=== PATIENT | female | born 1940 | race Two or more races ===

== ENCOUNTER 2017-05-12 15:22 | Emergency (ER) | payer MEDICARE ==
[~2017-05-12] VITALS: Ht 149.9 cm; Wt 110.6 kg
[2017-05-12] MEDS ORDERED: ATEN25TA (15:38)
[2017-05-12] MEDS ORDERED: EZET10TA (15:38)
[2017-05-12] MEDS ORDERED: SIMV40TA2 (15:38)
[2017-05-12] MEDS ORDERED: FURO40TA2 (15:38)
[2017-05-12 17:07] VITALS: BP 103/59
[2017-09-12] MEDS ORDERED: GLUC1CAP10 PO (11:44)
[2017-09-12] MEDS ORDERED: EUCECRE3 TOP (11:45)
[2017-09-12] MEDS ORDERED: SINUPOW7 (11:45)
== END 2017-05-12 17:17 | disposition home or self-care (01) ==
LOC: M ED 15:22
DX: L97.229 Non-pressure chronic ulcer of left calf with unspecified severity (principal); I73.9 Peripheral vascular disease, unspecified; I10 Essential (primary) hypertension; Z88.2 Allergy status to sulfonamides; Z88.1 Allergy status to other antibiotic agents; Z79.899 Other long term (current) drug therapy

== ENCOUNTER → 2017-07-13 | Outpatient (CLI) | payer MEDICARE ==
[~2017-07-13] MED LIST: ATEN25TA; EUCECRE3 TOP; EZET10TA; FURO40TA2; GLUC1CAP10 PO; SIMV40TA2; SINUPOW7
--- NOTE | 2017-07-13 13:32 | REP ---
Clinical: Idiopathic venous hypertension. Technique: Hill scale and color Doppler evaluation using linear high frequency transducer with reflux evaluation. Findings: Ultrasound examination of the left lower extremity deep venous structures from the common femoral vein to the popliteal vein demonstrates normal compressibility flow and wave patterns in response to respiration and augmentation. There is no evidence for deep venous thrombosis. Reflux portion of examination demonstrates reflux through the greater saphenous vein at the saphenofemoral junction measuring 11 mm diameter and 5.5 seconds duration; at the mid thigh measuring 8 mm diameter and 7.8 seconds duration; at the knee measuring 6 mm diameter and 4.8 seconds duration. Associated moderate to large collaterals from the greater saphenous vein extend caudally to the knee and demonstrate reflux. Impression: 1. No evidence for deep venous thrombosis. 2. Marked reflux throughout the greater saphenous vein likely amendable to EVLT. Signed by Gualberto Menezes MD 07/13/2017 01:24 P
== END ==
LOC: M RAD 12:22
PROVIDERS: ATTEND Surgery
DX: I87.312 Chronic venous hypertension (idiopathic) with ulcer of left lower extremity (principal)

== ENCOUNTER → 2017-09-16 | Outpatient (CLI) | payer MEDICARE ==
[2017-09-16 11:14] LABS: MEAN CORPUSCULAR HEMOGLOBIN 31.1 pg (27.0-33.0); MEAN CORPUSCULAR HGB CONC 33.2 g/dl (32.0-36.5); MEAN CORPUSCULAR VOLUME 93.8 fl (80.0-96.0); PLATELET COUNT, AUTOMATED 178 10^3/uL (150-450); RED CELL DISTRIBUTION WIDTH 12.8 % (11.5-14.5); WHITE BLOOD COUNT 7.4 10^3/uL (4.0-10.0)
[2017-09-16 11:39] LABS: ANION GAP 7 MEQ/L (8-16); BLOOD UREA NITROGEN 20 MG/DL (7-18); CALCIUM LEVEL 8.6 MG/DL (8.8-10.2); CARBON DIOXIDE LEVEL 32 MEQ/L (21-32); CHLORIDE LEVEL 103 MEQ/L (98-107); CREATININE FOR GFR 0.69 MG/DL (0.55-1.02); GLOMERULAR FILTRATION RATE > 60.0 (>39); GLUCOSE, FASTING 121 MG/DL (83-110); POTASSIUM SERUM 4.3 MEQ/L (3.5-5.1); SODIUM LEVEL 142 MEQ/L (136-145)
--- NOTE | 2017-09-16 18:28 | ECGEPIP ---
Stationary ECG Study [facility] Test Date: 2017-09-16 Pat Name: PRASHANT LAURENT Department: Room: - Gender: F Packaging Engineer: SARAH : 1940 Requested By: Timoteo Morrison Order Number: [id number] Reading MD: Ciera Herrera Measurements Intervals [place] Rate: 64 P: 56 MO: 219 QRS: -38 QRSD: 118 T: -6 QT: 441 QTc: 457 Interpretive Statements SINUS RHYTHM WITH FIRST DEGREE AV BLOCK MARKED LEFT AXIS DEVIATION INCOMPLETE RIGHT BUNDLE BRANCH BLOCK VOLTAGE CRITERIA FOR LVH POSSIBLE SEPTAL MYOCARDIAL INFARCTION, INDETERMINED AGE NO PRIOR Electronically Signed On 09-16-2017 18:27:43 EST by Ciera Herrera
== END ==
LOC: M LAB 10:42
PROVIDERS: ATTEND Anesthesiology
DX: Z01.818 Encounter for other preprocedural examination (principal); I10 Essential (primary) hypertension; I45.19 Other right bundle-branch block

== ENCOUNTER 2017-09-22 07:02 | Day surgery (SDC) | payer MEDICARE ==
[~2017-09-22] VITALS: Ht 149.9 cm; Wt 109.4 kg
[2017-09-22] MEDS ORDERED: LR 1,000 ML IV ONE (07:30)
[2017-09-22] MEDS ORDERED: LIDOCAINE 1% SDV INJ 30 ML VIAL As Ordered ONE (08:51)
[2017-09-22] MEDS ORDERED: LIDOCAINE W/EPINEPHRINE 1% 20ML VIAL As Ordered ONE (08:51)
[2017-09-22] MEDS ORDERED: PROPOFOL 500 MG/50 ML VIAL As Ordered ONE (10:09)
[2017-09-22] MEDS ORDERED: LIDOCAINE 2% INJ 100 MG/5 ML SDV (FOR ANES.) As Ordered ONE (10:09)
[2017-09-22] MEDS ORDERED: fentaNYL 100 MCG/2 ML INJECTION (J3010) As Ordered ONE (10:09)
[2017-09-22] MEDS ORDERED: MIDAZOLAM INJ 2 MG/2 ML VIAL (J2250) As Ordered ONE (10:09)
[2017-09-22] MEDS ORDERED: ePHEDrine SULFATE 25 MG/5 ML(5MG/ML) SYRINGE As Ordered ONE (10:14)
[2017-09-22] MEDS ORDERED: PHENYLephrine HCL 500 MCG/5 ML (100MCG/ML) SYRINGE (J2370) As Ordered ONE (10:14)
[2017-09-22] MEDS ORDERED: PROPOFOL 200 MG/20 ML VIAL As Ordered ONE (10:34)
[2017-09-22] MEDS ORDERED: NORCO, ANEXSIA 5/325MG TABLET (HYDROcodone/ACETAMINOPHEN) PO PRN (11:30)
[2017-09-22] MEDS ORDERED: ONDANSETRON 4MG/2ML VIAL (J2405) IV PRN (11:30)
[2017-09-22] MEDS ORDERED: LR 1,000 ML IV SCH (11:30)
[2017-09-22 11:36] VITALS: BP 183/85
--- NOTE | 2017-10-27 14:05 | RO ---
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 Non-healing left venostasis ulcer. POSTPROCEDURE DIAGNOSIS: Left greater saphenous vein venous valvular insufficiency. Non-healing left venostasis ulcer. PROCEDURE: Left greater saphenous vein radiofrequency ablation. SURGEON: Dr. Dylan Roper. HYDROLOGY TEACHER: None. ANESTHESIA: Local monitored anesthesia care (MAC). ESTIMATED BLOOD LOSS: 50 mL. IV FLUIDS: 650 mL. SPECIMENS: None. HEPARIN: None. COMPLICATIONS: None. DRAINS: None. INDICATION: The patient is a 77-year-old female with a nonhealing venostasis ulcer in her left lower extremity who underwent an ultrasound showing she had venous valvular insufficiency in her greater saphenous vein. The patient will undergo a greater saphenous vein radiofrequency ablation for aide in healing and prevention of future venostasis ulcers. Risks, benefits and alternative treatment options were discussed with the patient. DESCRIPTION OF PROCEDURE: The patient was taken to the operating room, placed supine on the operating room table and then prepped and draped in the standard surgical fashion. Ultrasound was used to guide cannulation of the greater saphenous vein in the below knee region of the left lower extremity after which the micropuncture wire was enhanced through the micropuncture needle which was upsized to a sheath. A radiofrequency ablation catheter was then placed 2 cm distal to the saphenofemoral junction under ultrasound guidance. solution was then injected circumferentially around the greater saphenous vein from the saphenofemoral junction to the puncture site in the below knee region after which the radiofrequency ablation catheter was used to ablate the greater saphenous vein 2 cm distal to the saphenofemoral junction to the entry site in the below knee region. Catheters and wires were then removed and the dressings were applied. The patient tolerated the procedure well. All instrument, sponge and needle counts were correct at the end of the case. There were no complications. Dr. Roper was present for and directed the entire case. The patient was transferred to the recovery room and subsequently discharged in stable condition.
== END 2017-09-22 11:40 | disposition home or self-care (01) ==
LOC: M SDC 07:02
PROVIDERS: ATTEND Surgery Vascular Surgery
DX: I83.228 Varicose veins of left lower extremity with both ulcer of other part of lower extremity and inflammation (principal); L97.929 Non-pressure chronic ulcer of unspecified part of left lower leg with unspecified severity; I10 Essential (primary) hypertension; E78.00 Pure hypercholesterolemia, unspecified; R06.02 Shortness of breath; R29.898 Other symptoms and signs involving the musculoskeletal system; R06.83 Snoring; C50.911 Malignant neoplasm of unspecified site of right female breast; Z88.1 Allergy status to other antibiotic agents; Z88.2 Allergy status to sulfonamides; Z88.8 Allergy status to other drugs, medicaments and biological substances; Z79.899 Other long term (current) drug therapy; Z90.11 Acquired absence of right breast and nipple
CPT/HCPCS: 36475; J2250; J2370; J3010

== ENCOUNTER → 2017-10-10 | Outpatient (CLI) | payer MEDICARE ==
--- NOTE | 2017-10-10 13:12 | REP ---
LEFT LOWER EXTREMITY DOPPLER VENOUS ULTRASOUND: 10/10/2017. Comparison: 07/13/2017 venous reflux study. Clinical history: Status post ablation, evaluate for DVT. Findings: Standard duplex techniques were utilized. Color flow is maintained throughout the deep venous system from the groin to the popliteal fossa. There is respiratory variation and augmented flow at all levels. There are small lymph nodes in the inguinal region. There is no evidence of thrombus with full compressibility throughout the course of the deep venous system. There is respiratory variation and augmented flow at all levels. There is also flow maintained in the greater saphenous vein. Impression: 1. No ultrasound evidence of DVT in the left lower extremity. There remains some flow in the greater saphenous vein. The deep venous system is fully compressible. Nothing acute. Signed by Marcial Delgado MD 10/11/2017 07:21 P
== END ==
LOC: M RAD 11:09
PROVIDERS: ATTEND Surgery Vascular Surgery
DX: I87.2 Venous insufficiency (chronic) (peripheral) (principal)

== ENCOUNTER → 2022-12-13 | Outpatient (CLI) | payer MEDICARE ==
[~2022-12-13] MED LIST changes: -EZET10TA; +EZET10TA21; -SIMV40TA2; +SIMV40TA20
== END ==
LOC: M RAD 08:49
PROVIDERS: ATTEND Surgery
DX: I87.312 Chronic venous hypertension (idiopathic) with ulcer of left lower extremity (principal)

== ENCOUNTER → 2022-12-16 | Outpatient (REF) | payer MEDICARE | LOC: M SFHCWOUN 16:31 | PROVIDERS: ATTEND Physician Assistant | DX: L97.822 Non-pressure chronic ulcer of other part of left lower leg with fat layer exposed (principal); I87.312 Chronic venous hypertension (idiopathic) with ulcer of left lower extremity ==

== ENCOUNTER → 2022-12-20 | Outpatient (CLI) | payer MEDICARE | LOC: M RAD 12:05 | PROVIDERS: ATTEND Physician Assistant | DX: L97.822 Non-pressure chronic ulcer of other part of left lower leg with fat layer exposed (principal) ==

== ENCOUNTER → 2022-12-21 | Outpatient (POV) | payer MEDICARE ==
[~2022-12-21] VITALS: Ht 149.9 cm; Wt 99.5 kg
[2022-12-21 10:50] VITALS: BP 121/61
== END ==
LOC: M IRPOV 10:22
PROVIDERS: ATTEND Radiology Diagnostic Radiology
DX: I87.012 Postthrombotic syndrome with ulcer of left lower extremity (principal); L97.929 Non-pressure chronic ulcer of unspecified part of left lower leg with unspecified severity; Z79.82 Long term (current) use of aspirin; Z79.899 Other long term (current) drug therapy; Z85.3 Personal history of malignant neoplasm of breast; Z86.718 Personal history of other venous thrombosis and embolism; Z88.1 Allergy status to other antibiotic agents; Z88.2 Allergy status to sulfonamides; Z88.8 Allergy status to other drugs, medicaments and biological substances; Z90.11 Acquired absence of right breast and nipple; Z90.710 Acquired absence of both cervix and uterus; Z98.51 Tubal ligation status

== ENCOUNTER → 2023-01-06 | Outpatient (CLI) | payer MEDICARE | LOC: M LABSMTC 10:56 | PROVIDERS: ATTEND Anesthesiology | DX: Z01.812 Encounter for preprocedural laboratory examination (principal); Z20.822 Contact with and (suspected) exposure to COVID-19 ==

== ENCOUNTER → 2023-01-10 | Outpatient (CLI) | payer MEDICARE ==
[~2023-01-10] MED LIST changes: +ISOVUE-300 61% 100ML VIAL As Ordered ONE; +LIDOCAINE 1% MDV 20ML VIAL As Ordered ONE; +MIDAZOLAM INJ 2MG/2ML VIAL As Ordered ONE; +NS 1,000 ML IV SCH; +diphenhydrAMINE 50MG/ML VIAL As Ordered ONE; +fentaNYL 100 MCG/2 ML INJECTION As Ordered ONE
[2023-01-10 14:30] VITALS: BP 137/62
== END ==
LOC: M IRPRO 10:43
PROVIDERS: ATTEND Radiology Diagnostic Radiology
DX: I87.012 Postthrombotic syndrome with ulcer of left lower extremity (principal); L97.929 Non-pressure chronic ulcer of unspecified part of left lower leg with unspecified severity; Z79.899 Other long term (current) drug therapy; Z86.718 Personal history of other venous thrombosis and embolism; Z88.1 Allergy status to other antibiotic agents; Z88.2 Allergy status to sulfonamides; Z88.8 Allergy status to other drugs, medicaments and biological substances; Z95.828 Presence of other vascular implants and grafts
CPT/HCPCS: 36012; 99152; C1769; C1894; J2250; J3010; Q9967

== ENCOUNTER → 2023-01-25 | Outpatient (POV) | payer MEDICARE ==
[~2023-01-25] VITALS: Ht 149.9 cm; Wt 97.7 kg
[~2023-01-25] MED LIST changes: -ISOVUE-300 61% 100ML VIAL As Ordered ONE; -LIDOCAINE 1% MDV 20ML VIAL As Ordered ONE; -MIDAZOLAM INJ 2MG/2ML VIAL As Ordered ONE; -NS 1,000 ML IV SCH; -diphenhydrAMINE 50MG/ML VIAL As Ordered ONE; -fentaNYL 100 MCG/2 ML INJECTION As Ordered ONE
[2023-01-25 13:20] VITALS: BP 131/86
== END ==
LOC: M IRPOV 13:04
PROVIDERS: ATTEND Radiology Diagnostic Radiology
DX: I87.302 Chronic venous hypertension (idiopathic) without complications of left lower extremity (principal); Z86.718 Personal history of other venous thrombosis and embolism; Z88.1 Allergy status to other antibiotic agents; Z88.2 Allergy status to sulfonamides; Z88.8 Allergy status to other drugs, medicaments and biological substances

== ENCOUNTER → 2023-03-01 | Outpatient (POV) | payer MEDICARE ==
[~2023-03-01] VITALS: Ht 149.9 cm; Wt 97.7 kg
[2023-03-01 08:10] VITALS: BP 155/71
== END ==
LOC: M IRPOV 07:54
PROVIDERS: ATTEND Radiology Diagnostic Radiology
DX: I87.2 Venous insufficiency (chronic) (peripheral) (principal); Z88.1 Allergy status to other antibiotic agents; Z88.2 Allergy status to sulfonamides; Z91.048 Other nonmedicinal substance allergy status